=== PATIENT | female | born 2000 | race African-American/Black ===

== ENCOUNTER → 2025-02-07 | Outpatient (CLI) | payer OTHER ==
[2025-02-10 16:49] LABS: ANTI-NUCLEAR AB ANA,IGG ELISA Detected (None Detected)
[2025-02-10 18:54] LABS: CYCLIC CITRULLINATED PEP,IGG/A 7 Units (0-19)
[2025-02-12 21:59] LABS: ANTINUCLEAR AB (ANA),HEP-2,IGG Detected (<1:80)
[2025-02-13 09:23] LABS: SMITH/RNP (ENA) AB, IGG 21 Units (0-19)
[2025-02-13 21:45] LABS: JO-1 HISTIDYL-TRNA SYNTHET,IGG 1 AU/mL (0-40); SCLERODERMA (SCL-70) AB,IGG 2 AU/mL (0-40); SMITH (ENA) ANTIBODY, IGG 4 AU/mL (0-40); SSA-52 (RO52) (ENA) AB, IGG 1 AU/mL (0-40); SSA-60 (RO60) (ENA) AB, IGG 0 AU/mL (0-40); SSB (LA) (ENA) ANTIBODY, IGG 0 AU/mL (0-40)
[2025-02-14 15:16] LABS: DOUBLE-STRANDED DNA IGG ELISA 177 IU (0-24)
[2025-02-16 21:03] LABS: DOUBLESTRAND DNA DSDNA IGG IFA 1:2560 (<1:10)
== END ==
LOC: LAB SHORT 17:26 → LAB 17:26
PROVIDERS: Student in an Organized Health Care Education/Training Program
DX: M25.50 Pain in unspecified joint (principal)
CPT/HCPCS: 86038; 86039; 86200; 86225; 86235; 86256